=== PATIENT | female | born 1980 | race African-American/Black ===

== ENCOUNTER 2020-10-05 12:37 | Emergency (ER) | payer OTHER, SELFPAY ==
[2020-10-05 12:53] VITALS: BP 118/65; PULSE 70; RESP 16; TEMP 36.4; O2SAT 100
--- NOTE | 2020-10-05 13:12 | ED.URI ---
HPI - URI/Sore Throat General Chief Complaint: Upper Respiratory Infection Stated Complaint: Congestion Time Seen by Provider: 10/05/20 12:56 Source: patient and RN notes reviewed Mode of arrival: ambulatory Limitations: no limitations History of Present Illness HPI Narrative: Patient presents today complaining of a 3-day history of nasal congestion, rhinorrhea, and sneezing. Denies cough, fever, shortness of breath. Patient works alf. She was Covid tested 2 days ago and was negative. She was tested again yesterday and was told she was a faint positive and that she needed to go somewhere else for PCR test. She did have COVID-19 in April and has been vaccinated. She has been taking Mucinex with mild relief. MD elicited complaint: nasal congestion Related Data Home Medications Medication Instructions Recorded Confirmed No Home Medications 10/05/20 10/05/20 Allergies Allergy/AdvReac Type Severity Reaction Status Date / Time No Known Allergies Allergy Verified 10/05/20 12:57 Review of Systems Review of Systems: CONSTITUTIONAL: Denies body aches, fever, chills, or sweats. EYES: Denies visual changes, redness, or discharge. ENT: Denies sore throat, or otalgia.+ Congestion, rhinorrhea, sneezing CARDIOVASCULAR: Denies chest pain, palpitations, or edema. RESPIRATORY: Denies cough or dyspnea. GASTROINTESTINAL: Denies abdominal pain, nausea, vomiting, or diarrhea. GENITOURINARY: Denies dysuria or hematuria. SKIN: Denies rash, itching, or wounds. MUSCULOSKELETAL: Denies back pain, joint pain, or myalgia. NEUROLOGIC: Denies headache, numbness, tingling, or weakness. PSYCH: Denies depression or anxiety. [facility] Past Medical History Medical History (Updated 10/05/20 @ 13:29 by Ines Serrano, [facility], ) History of COVID-19 Comments At time of signature, I have reviewed and agree with nursing past medical, surgical, social and family history unless otherwise noted. Please see nursing chart for further information. There is no relevant family history pertinent to the presenting complaint Exam Narrative: GENERAL: Well-appearing, well-nourished, and in no acute distress. HEAD: Normocephalic, atraumatic. EYES: EOMI. No redness or drainage. Conjunctivae normal. ENT: Mucous membranes pink and moist. Nares congested with rhinorrhea. TMs normal bilaterally. Throat normal. Uvula midline. NECK: Normal AROM. Supple. No lymphadenopathy. CHEST: No respiratory distress. Clear to auscultation. HEART: Regular rate and rhythm. No murmur appreciated. Normal peripheral pulses. EXTREMITIES: Normal range of motion. No edema. SKIN: Warm, dry, no rash. Capillary refill normal. Normal skin turgor. NEURO: No focal deficits. Alert and oriented x3. Gait steady. PSYCH: Normal affect. No signs of depression or anxiety. Course Course Emergency Course: PCR swab obtained. Vital Signs Vital signs: Vital Signs Temperature 97.5 F L 10/05/20 12:53 Pulse Rate 70 10/05/20 12:53 Respiratory Rate 16 10/05/20 12:53 Blood Pressure 118/65 10/05/20 12:53 Pulse Oximetry 100 10/05/20 12:53 Temperature 97.5 F L 10/05/20 12:53 Pulse Rate 70 10/05/20 12:53 Respiratory Rate 16 10/05/20 12:53 Blood Pressure 118/65 10/05/20 12:53 Pulse Oximetry 100 10/05/20 12:53 Reviewed MDM - URI/Sore Throat Differential Diagnosis Differential diagnosis: Likely upper respiratory infection, sinusitis, viral infection and other (COVID-19) Critical Care Time Critical Care Time Critical Care Time: No Discharge Plan Discharge Clinical Impression: Upper respiratory infection Qualifiers: URI type: unspecified URI Qualified Code(s): J06.9 - Acute upper respiratory infection, unspecified Patient Disposition: Home, Self-Care Condition: Stable Instructions: Upper Respiratory Infection (DC) Additional Instructions: Your symptoms are likely due to a viral illness, which is not treated with antibiotics. Virus sympt
[2020-10-06 17:31] LABS: SARS-CoV-2 RNA PCR Positive
== END 2020-10-05 13:22 | disposition home or self-care (01) ==
PROVIDERS: Emergency Provider Nurse Practitioner; PCP Family Medicine
DX: U07.1 COVID-19 (principal); Z86.16 Personal history of COVID-19
CPT/HCPCS: 99203; C9803; G0463; U0003; U0005